=== PATIENT | female | born 1965 | race Caucasian/White ===

== ENCOUNTER 2019-01-02 23:01 | Emergency (ER) ==
[2019-01-02 23:28] VITALS: BP 170/101; TEMP 98.6; BMI 22.0
--- NOTE | 2019-01-02 23:33 | ED.PDOC ---
General ED Provider: Dr. JUMANA ROCHA Chief Complaint: Bite Stated Complaint: Patient is a 53 year old who was bite by a stray dog think it was a [place] mcallister. Bit was on the left arm and had some bleeding and pain but still able to move arm. Tetenus is not up to date. Time Seen by Physician: 00:22 Mode of Arrival: Walk-In Information Source: Patient Exam Limitations: No limitations Nursing and Triage Documentation Reviewed and Agree: Yes Does patient meet sepsis criteria?: No System Inflammatory Response Syndrome: Not Applicable Sepsis Protocol: For patient's 13 years and over: Temp is 96.8 and below OR 101 and greater Pulse >90 BPM Resp >20/minute Acutely Altered Mental Status Are patient's symptoms suggestive of a new infection, such as: -Pneumonia -Skin, Soft Tissue -Endocarditis -UTI -Bone, Joint Infection -Implantable Device -Acute Abdominal Infection -Wound Infection -Meningitis -Blood Stream Catheter Infection -Unknown Review of Systems - Review Of Systems Constitutional: Reports: No symptoms Eyes: Reports: No symptoms Ears, Nose, Mouth, Throat: Reports: No symptoms Respiratory: Reports: No symptoms Cardiac: Reports: No symptoms GI: Reports: No symptoms : Reports: No symptoms Musculoskeletal: Reports: Muscle pain Skin: Reports: Bruising Neurological: Reports: Anxiety Endocrine: Reports: No symptoms Hematologic/Lymphatic: Reports: No symptoms All Other Systems: Reviewed and Negative Past Medical History - Past Medical History Previously Healthy: Yes Endocrine: Reports: None Cardiovascular: Reports: None Respiratory: Reports: None Hematological: Reports: None Gastrointestinal: Reports: None Genitourinary: Reports: None Neuro/Psych: Reports: Anxiety, Depression, Bipolar Disorder Musculoskeletal: Reports: Back Pain Cancer: Reports: None Last Menstrual Period: 2011 Other Pertinent Past Medical History: Pneumothorax - Surgical History General Surgical History: Reports: Back Surgery (2 back surgeries - artificial disc at L5, S1), Other (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, Lung surg x 2 for spontenous Pneumothorax ) - Family History Family History: Reports: None - Social History Smoking Status: Former smoker Hx Substance Use: Yes (marijuana) Alcohol Screening: Occasionally - Immunizations Tetanus Shot up to Date: No (unsure) Physical Exam - Physical Exam Appearance: Ill-appearing Eyes: RESHMA, EOMI, Conjunctiva clear Neck: Supple Respiratory: Airway patent, Breath sounds clear, Breath sounds equal, Respirations nonlabored Cardiovascular: RRR, Pulses normal, No rub, No murmur GI/: Soft, Nontender, No masses, Bowel sounds normal, No Organomegaly Musculoskeletal: Normal strength Skin: Warm, Dry Neurological: Sensation intact, Alert Psychiatric: Anxious Procedures - Laceration/Wound Repair Left lateral arm laceration Wound Description: Irregular, Stellate Wound Length (cm): 2 x 2 x 2 Wound Width: 2 Wound Depth: 1 Wound Explored: Contaminated Wound Irrigated: Yes Wound Prep: Betadine Anesthesia: Lidocaine Wound Debrided: Minimal Undermining: Minimal Wound Margins: Revised Wound Repaired With: Sutures Suture Size and Type: 3.0 Number of Sutures: 5 (simple interrupted ) Layer Closure?: No Sterile Dressing Applied?: Yes Splint Applied?: No Sling Applied?: No Progress: Tolerated well Re-Evaluation - Re-Evaluation Time of Re-Evaluation: 00:27 Status: Improved Vital Signs Stable: Yes (140/82, P 84, R 20) Pain Level: better Appearance: NAD Critical Care Note - Critical Care Note Total Time (mins): 0 Course - Course Orders, Labs, Meds: Orders Category Date Time Status Clindamycin HCl [Cleocin] MEDS 01/03/19 00:19 Discontinued 300 mg PO ONCE STA Diphth,Pertuss(Acell),Tet Vac [Boostrix] MEDS 01/02/19 23:41 Discontinued 0.5 ml IM .ONCE ONE Diphth,Pertuss(Acell),Tet Vac [Boostrix] MEDS 01/02/19 23:52 Discontinued 0.5 ml IM .STK-MED ONE Lidocaine HCl/Pf [Lidocaine HCl 1% Sdv] MEDS 01/02/19 23:41 Discontinued 5 ml .ROUTE .STK-MED ONE Lidocaine HCl/Pf [Lidocaine HCl 1% Sdv] MEDS 01/02/19 23:41 Discontinued 5 ml SUBCUT ONCE STA Medications Discontinued Medications Generic Name Dose Route Start Last Admin Trade Name Freq PRN Reason Stop Dose Admin Clindamycin HCl 300 mg 01/03/19 00:19 01/03/19 00:33 Cleocin PO 01/03/19 00:20 300 mg ONCE STA Administration Diphtheria/Pertussis/Tetanus Vacc 0.5 ml 01/02/19 23:41 01/02/19 23:54 Boostrix IM 01/02/19 23:42 0.5 ml .ONCE ONE Administration Lidocaine HCl 5 ml 01/02/19 23:41 01/02/19 23:57 Lidocaine Hcl 1% Sdv SUBCUT 01/02/19 23:42 5 ml ONCE STA Administration Vital Signs: Temp Pulse Resp BP Pulse Ox 01/02/19 23:03 98.6 F 80 20 170/101 H 98 Departure - Departure Time of Disposition: 00:36 Disposition: HOME SELF-CARE Discharge Problem: Laceration Dog bite of arm Qualifiers: Encounter type: initial encounter Laterality: left Qualified Code(s): S41.152A - Open bite of left upper arm, initial encounter Instructions: Diphtheria/Pertussis/Tetanus Vaccine (By injection), Animal Bite (ED), Care For Your Stitches (ED), Laceration (ED) Condition: Stable Pt referred to PMD for follow-up: Yes IPMP verified?: No Additional Instructions: Take Medications as prescribed Follow up with PCP in 7-10 days to have sutures removed Prescriptions: Clindamycin HCl 300 mg PO TID #30 capsule Fluconazole 150 mg PO ONCE #1 tablet Allergies/Adverse Reactions: Allergies Penicillins Adverse Reaction (Verified 01/02/19 23:29) Difficulty Swallowing Home Medications: Ambulatory Orders Bupropion HCl [Wellbutrin Xl] 150 mg PO DAILY 01/03/19 Clindamycin HCl 300 mg PO TID #30 capsule 01/03/19 Clonazepam [Klonopin] 1 mg PO DAILY PRN 01/03/19 Fluconazole 150 mg PO ONCE #1 tablet 01/03/19 Hydrocodone/Acetaminophen [Hydrocodone-Acetamin 7.5-325] 7.5 - 325 mg PO DAILY PRN 01/03/19 Lamotrigine [Lamictal] 100 mg PO DAILY 01/03/19 Disposition Discussed With: Patient, Family
[2019-01-02] MEDS ORDERED: LIDOCAINE HCL 1% SDV SUBCUT STA (23:41)
[2019-01-02] MEDS ORDERED: BOOSTRIX IM ONE ×2 (23:41→23:52)
[2019-01-02] MEDS ORDERED: LIDOCAINE HCL 1% SDV ONE (23:41)
[2019-01-03] MEDS ORDERED: CLEOCIN PO STA (00:19)
== END 2019-01-03 00:50 | disposition home or self-care (01) ==
LOC: ED 23:01
DX: S41.152A Open bite of left upper arm, initial encounter (principal); W54.0XXA Bitten by dog, initial encounter
CPT/HCPCS: 90471; 90715; 99283